=== PATIENT | male | born 1970 | race African-American/Black ===

== ENCOUNTER 2018-06-29 13:47 | Emergency (ER) | payer MEDICAID, OTHER ==
[~2018-06-29] VITALS: Ht 180.3 cm; Wt 100.0 kg
[2018-06-29 17:53] VITALS: BP 137/83
== END 2018-06-29 17:56 | disposition home or self-care (01) ==
LOC: ER 13:47 → EDBD 13:47 → ER 17:56
DX: H00.014 Hordeolum externum left upper eyelid (principal); F12.10 Cannabis abuse, uncomplicated; Z98.890 Other specified postprocedural states
CPT/HCPCS: 99283